=== PATIENT | male | born 1995 | race Caucasian/White ===

== ENCOUNTER 2018-10-15 08:03 | Day surgery (SDC) | payer OTHER ==
[2018-10-14 10:58] VITALS: BMI 26.5
[2018-10-15] MEDS ORDERED: Fentanyl 250 MCG/5 ML VIAL ONE (11:09)
[2018-10-15] MEDS ORDERED: Midazolam HCl 2 mg/2 ml Vial ONE (11:09)
[2018-10-15] MEDS ORDERED: Bacitracin Zinc Ointment 30 gm TUBE ONE (11:14)
[2018-10-15] MEDS ORDERED: Bupivacaine/Epinephrine 0.25% 30 ML VIAL ONE (11:14)
[2018-10-15] MEDS ORDERED: Ondansetron PF 4 MG/2 ML Vial ONE (11:22)
[2018-10-15] MEDS ORDERED: Ketorolac Tromethamine 30 MG/ML VIAL ONE (11:22)
[2018-10-15] MEDS ORDERED: Dexamethasone 20 MG/5 ML VIAL ONE (11:22)
[2018-10-15] MEDS ORDERED: Lidocaine 1% PF 5 ML VIAL ONE (11:22)
[2018-10-15] MEDS ORDERED: PROPOFOL 200 MG/20 ML VIAL ONE (11:22)
[2018-10-15] MEDS ORDERED: Glycopyrrolate 0.2 MG/ML 5 ML SYRINGE ONE (11:22)
[2018-10-15] MEDS ORDERED: Levofloxacin 500 mg/D5W 100 ml Premix Bag ONE (11:23)
[2018-10-15] MEDS ORDERED: Meperidine HCl/PF 25 MG/ML VIAL ONE (13:05)
[2018-10-15] MEDS ORDERED: Sodium Chloride 0.9% 10 ML ONE (13:46)
[2018-10-15] MEDS ORDERED: Promethazine HCl 25 MG/ML VIAL ONE (13:46)
--- NOTE | 2018-10-19 14:40 | OP ---
DATE OF PROCEDURE: 10/15/2018 PROCEDURE PERFORMED: Excision of pilonidal cyst. PREOPERATIVE DIAGNOSIS: Pilonidal cyst. POSTOPERATIVE DIAGNOSIS: Pilonidal cyst. HISTORY: Mr. Kelley is a 23-year-old man who presented to the clinic with an infected pilonidal cyst. This responded with antibiotics and has become asymptomatic, but he desires excision to prevent future episodes. DESCRIPTION OF PROCEDURE: After informed consent was obtained and appropriate preoperative antibiotics were administered, the patient was taken to the operating room, where he was placed in supine position and general endotracheal anesthesia was administered. He was then moved to the prone stephanie-knife position with appropriate support and padding of his extremities. He was prepped and draped in a standard sterile fashion and local anesthesia was infused circumferentially for a field block. Methylene blue was infused into the two visible sinuses and an elliptical incision was made incorporating these two sinuses and the right lateral cyst. These were completely excised and sent as a specimen for permanent pathology. Flaps were then raised subcutaneously above the gluteal muscles and under the skin and the subcutaneous tissue was reapproximated in layers with interrupted [id number] Monocryl sutures. The skin was then closed with a vertical mattress nylon interrupted suture and additional local anesthesia was infused circumferentially for postoperative pain control. Hemostasis was maintained throughout the case using Bovie electrocautery as necessary. ESTIMATED BLOOD LOSS: Minimal. COMPLICATIONS: There were no complications. SPECIMENS: There were no specimens. The wound was dressed sterilely with antibiotic ointment, gauze, and Tegaderm, and the patient was moved back to the supine position, extubated, and taken to Recovery in good condition. Job ID: [id number]
== END 2018-10-15 15:05 | disposition home or self-care (01) ==
LOC: SDC 08:03
PROVIDERS: ATTEND Surgery
PROC: 0JB90ZZ Excision of Buttock Subcutaneous Tissue and Fascia, Open Approach (ICD-10-PCS; principal; 2018-10-15)
DX: L05.91 Pilonidal cyst without abscess (principal); Z79.2 Long term (current) use of antibiotics; Z88.0 Allergy status to penicillin
CPT/HCPCS: 88304; 96374; J1100; J1885; J1956; J2001; J2175; J2250; J2405; J2550; J2704; J3010; Q9968

== ENCOUNTER 2020-05-16 11:02 | Emergency (ER) | payer OTHER, SELFPAY ==
[2020-05-16] MEDS ORDERED: Ketorolac Tromethamine 30 MG/ML VIAL ONE (11:26)
--- NOTE | 2020-05-16 11:30 | RAD ---
XR Chest 1 View Portable HISTORY: Chest pain COMPARISON: None FINDINGS: The heart size is normal. The lungs are well expanded without focal areas of consolidation, pneumothorax or pleural effusions. IMPRESSION: No radiographic evidence of acute cardiopulmonary process.
[2020-05-16 11:45] LABS: #Lymphocytes 1.6 thou/uL (1.20-3.40); #Monocytes 0.4 thou/uL (0.11-0.59); #Neutrophils 3.3 thou/uL (1.40-6.50); %Basophils 0.6 % (0.0-1.0); %Eosinophils 0.6 % (0.0-10.0); %Lymphocytes 29.5 % (21.0-51.0); %Monocytes 6.9 % (0.0-10.0); %Neutrophils 62.3 % (42.0-75.0); Hemoglobin 15.3 g/dL (14.0-18.0); Mean Corpuscular HGB CONC 34.6 g/dL (32.0-36.0); Mean Corpuscular Hemoglobin 30.4 pg (27.0-31.0); Mean Platelet Volume 6.4 fL (7.4-10.4); Platelet Count 268 thou/uL (130-400); RBC Distribution Width 11.4 % (11.5-14.5); Red Blood Cell (RBC) Count 5.04 mill/uL (4.70-6.10); White Blood Cell (WBC) Count 5.3 thou/uL (4.8-10.8)
[2020-05-16 12:06] LABS: ALT (SGPT) 13 U/L (8-55); AST (SGOT) 19 U/L (5-34); Albumin 4.8 g/dL (3.5-5.0); Alkaline Phosphatase 75 U/L (40-110); Anion Gap 15 mmol/L (10-20); BUN (Urea Nitrogen) 14 mg/dL (8.9-20.6); Bilirubin, Total 1.1 mg/dL (0.2-1.2); Calc. Creatinine Clearance 0 mL/min (70-130); Calcium 9.8 mg/dL (7.8-10.44); Carbon Dioxide 22 mmol/L (22-29); Chloride 103 mmol/L (98-107); Estimated GFR-MDRD Greater than 90; Globulin 2.7 g/dL (2.4-3.5); Glucose 107 mg/dL (70-105); Lipase 20 U/L (8-78); Protein, Total 7.5 g/dL (6.0-8.3); Sodium 137 mmol/L (136-145)
[2020-05-16] MEDS ORDERED: Potassium Chloride 20 MEQ TAB ONE (12:58)
== END 2020-05-16 13:28 | disposition home or self-care (01) ==
LOC: ERS 11:02
DX: I45.10 Unspecified right bundle-branch block (principal); E87.6 Hypokalemia; R07.89 Other chest pain
CPT/HCPCS: 71045; 80053; 83690; 84443; 84484; 85025; 93005; 96361; 96374; J1885